=== PATIENT | male | born 1980 | race Two or more races ===

== ENCOUNTER 2023-04-23 19:22 | Inpatient (IN) | payer MEDICAID, OTHER ==
[~2023-04-23] VITALS: Ht 180.3 cm; Wt 92.2 kg
[2023-04-23 20:01] LABS: Basophils # (auto) 0.1 10 ^3/uL (0-0.2); Basophils % (auto) 0.6 % (0.0-2.0); Eosinophils # (auto) 0.1 10 ^3/uL (0-0.8); Eosinophils % (auto) 0.4 % (0.0-7.0); Hematocrit 50.1 % (41.0-53.0); Lymphocytes % (auto) 10.4 % (10.0-50.0); Mean Corpuscular Hemoglobin 29.2 pg (28.0-32.0); Mean Corpuscular Hgb Conc. 33.9 g/dL (32.0-36.0); Mean Corpuscular Volume 86.2 fL (80.0-100.0); Monocytes # (auto) 1.5 10 ^3/uL (0-1.3); Monocytes % (auto) 7.5 % (0.0-12.0); Neutrophils % (auto) 81.1 % (37.0-80.0); Nucleated Red Blood Cells % 0.1 %; Red Blood Cells 5.81 10^6/uL (4.5-5.90); Red Cell Distribution Width 13.1 % (11.8-14.3); White Blood Cell 19.7 10^3/uL (4.4-10.8)
[2023-04-23] MEDS ORDERED: SODIUM CHLORIDE 0.9% 1,000 ML IV ONE ×2 (20:15→21:15)
[2023-04-23] MEDS ORDERED: ONDANSETRON HCL 4 MG/2 ML VIAL IV ONE (20:15)
[2023-04-23 20:27] LABS: Alanine Aminotransferase 181 U/L (7-40); Albumin 4.1 g/dL (3.2-4.8); Alkaline Phosphatase 125 U/L (46-116); Anion Gap 10 (5-15); Aspartate Aminotransferase 81 U/L (13-40); BUN/Creatinine Ratio 11.6 (10.0-20.0); Blood Urea Nitrogen 16 mg/dL (9-23); Calcium 8.6 mg/dL (8.7-10.4); Carbon Dioxide 25 mmol/L (20-30); Chloride 97 mmol/L (98-107); Glucose 121 mg/dL (74-106); Lipase 29 U/L (12-53); Potassium 3.9 mmol/L (3.5-5.1); Sodium 132 mmol/L (136-145)
[2023-04-23 20:28] LABS: Bilirubin, Total 1.8 mg/dL (0.2-1.0); Total Protein 7.5 g/dL (5.7-8.2)
[2023-04-23] MEDS ORDERED: PIPERACILLIN-TAZOB 3.375GM 100 ML IV ONE (21:15)
[2023-04-23 22:23] LABS: Urine Bacteria NONE SEEN /hpf (None Seen); Urine Blood Negative /uL (Negative); Urine Clarity Clear (Clear); Urine Color Yellow (Yellow); Urine Mucus FEW (None Seen); Urine Protein, UAD 1+ (Negative); Urine Specific Gravity 1.021 (1.001-1.035); Urine WBC 5 /hpf (0 - 3); Urine pH 5.5 (5.0-8.0)
[2023-04-23 22:38] LABS: Amphetamine Screen, Urine Neg (NEGATIVE)
[2023-04-23 22:39] LABS: Barbiturate Scree,Urine Neg (NEGATIVE); Benzodiazephine Screen, Urine Neg (NEGATIVE); Cannabinoid Screen, Urine Pos (NEGATIVE); Cocaine Screen, Urine Neg (NEGATIVE); Opiate Scree,Urine Neg (NEGATIVE); Phencyclidine Screen, Urine Neg (NEGATIVE)
[2023-04-23] MEDS ORDERED: VANCOMYCIN PER PHARMACY 0 MG IV SCH (23:15)
[2023-04-23] MEDS ORDERED: ACETAMINOPHEN 325 MG TAB PO PRN (23:15)
[2023-04-23] MEDS ORDERED: MAALOX PLUS or MAALOX 30 ML PO PRN (23:15)
[2023-04-23] MEDS ORDERED: TEMAZEPAM 15 MG CAP PO PRN (23:15)
[2023-04-23] MEDS ORDERED: DOCUSATE SOD 100 MG CAP PO PRN (23:15)
[2023-04-23] MEDS ORDERED: LORazepam 0.5 MG TAB PO PRN (23:15)
[2023-04-23 23:43] VITALS: BP 125/64; PULSE 93; RESP 18; TEMP 99.5; O2SAT 94
[2023-04-23] MEDS ORDERED: VANCOMYCIN 1GM/200ML 200 ML IV ONE (23:45)
[2023-04-24] VITALS (7 sets, daily range): PULSE 71–83; RESP 12–22; O2SAT 93–95
[2023-04-24] MEDS: SODIUM CHLORIDE 0.9% 1,000 ML IV SCH ×2 (01:43→15:55)
[2023-04-24 06:10] LABS: Basophils # (auto) 0.1 10 ^3/uL (0-0.2); Basophils % (auto) 0.6 % (0.0-2.0); Eosinophils # (auto) 0 10 ^3/uL (0-0.8); Hematocrit 43.9 % (41.0-53.0); Hemoglobin 14.7 g/dL (13.5-17.5); Lymphocytes # (auto) 1.5 10 ^3/uL (0.4-5.4); Lymphocytes % (auto) 9.8 % (10.0-50.0); Mean Corpuscular Hgb Conc. 33.5 g/dL (32.0-36.0); Mean Corpuscular Volume 86.5 fL (80.0-100.0); Monocytes # (auto) 0.8 10 ^3/uL (0-1.3); Monocytes % (auto) 5.6 % (0.0-12.0); Neutrophils # (auto) 12.5 10 ^3/uL (1.6-8.6); Red Blood Cells 5.08 10^6/uL (4.5-5.90); Red Cell Distribution Width 13.4 % (11.8-14.3); White Blood Cell 14.9 10^3/uL (4.4-10.8)
[2023-04-24 06:27] LABS: Calcium 7.6 mg/dL (8.7-10.4); Chloride 103 mmol/L (98-107); Potassium 3.3 mmol/L (3.5-5.1); Sodium 134 mmol/L (136-145)
[2023-04-24 06:28] LABS: Anion Gap 7 (5-15); Carbon Dioxide 24 mmol/L (20-30)
[2023-04-24 06:33] LABS: Glucose 107 mg/dL (74-106)
[2023-04-24 06:34] LABS: BUN/Creatinine Ratio 18.8 (10.0-20.0); Blood Urea Nitrogen 16 mg/dL (9-23)
[2023-04-24] MEDS: PIPERACILLIN-TAZOB 3.375GM 100 ML IV SCH ×3 (06:38→22:00)
[2023-04-24] MEDS: ONDANSETRON HCL 4 MG/2 ML VIAL IV PRN ×3 (08:33→19:51)
[2023-04-24] MEDS: MORPHINE SULFATE INJ 2 MG/ml SYRG IV PRN ×3 (08:34→19:52)
[2023-04-24 09:02] LABS: COVID19 ANTIGEN SOFIA FIA NEGATIVE (NEGATIVE)
[2023-04-24] MEDS: predniSONE 20 MG TAB PO SCH (11:00)
[2023-04-24] MEDS: VANCOMYCIN 1GM/200ML 200 ML IV SCH (14:26)
[2023-04-25] VITALS (9 sets, daily range): BP systolic 102; BP diastolic 69; PULSE 71–82; RESP 14–18; TEMP 98.2; O2SAT 93–99
[2023-04-25] MEDS: VANCOMYCIN 1GM/200ML 200 ML IV SCH ×3 (02:47→22:00)
[2023-04-25] MEDS: MORPHINE SULFATE INJ 2 MG/ml SYRG IV PRN ×2 (02:53→14:31)
[2023-04-25] MEDS: ONDANSETRON HCL 4 MG/2 ML VIAL IV PRN ×2 (02:53→14:31)
[2023-04-25] MEDS: PIPERACILLIN-TAZOB 3.375GM 100 ML IV SCH ×3 (06:32→22:00)
[2023-04-25 07:13] LABS: Potassium 3.8 mmol/L (3.5-5.1)
[2023-04-25 07:14] LABS: Calcium 8.4 mg/dL (8.7-10.4)
[2023-04-25 07:19] LABS: BUN/Creatinine Ratio 20.3 (10.0-20.0)
[2023-04-25 07:21] LABS: Albumin 3.5 g/dL (3.2-4.8); Phosphorus 2.7 mg/dL (2.4-5.1)
[2023-04-25] MEDS: ALBUTEROL SULF 2.5 MG/0.5ML(0.5%) NEB SOLN NEB PRN ×2 (07:58→19:44)
[2023-04-25] MEDS: SODIUM CHLORIDE 0.9% 1,000 ML IV SCH (09:48)
[2023-04-25] MEDS: predniSONE 20 MG TAB PO SCH (14:30)
[2023-04-25] MEDS: HYDROcodone-ACET 5/325MG TAB PO PRN (20:32)
[2023-04-26] VITALS (12 sets, daily range): BP systolic 113–135; BP diastolic 73–86; PULSE 60–82; RESP 12–18; TEMP 97.3–98.6; O2SAT 93–98
[2023-04-26] MEDS: SODIUM CHLORIDE 0.9% 1,000 ML IV SCH ×2 (01:15→18:39)
[2023-04-26] MEDS: VANCOMYCIN 1GM/200ML 200 ML IV SCH (05:58)
[2023-04-26] MEDS: HYDROcodone-ACET 5/325MG TAB PO PRN ×3 (06:09→18:38)
[2023-04-26] MEDS: PIPERACILLIN-TAZOB 3.375GM 100 ML IV SCH (07:00)
[2023-04-26] MEDS: ALBUTEROL SULF 2.5 MG/0.5ML(0.5%) NEB SOLN NEB PRN ×2 (07:03→10:42)
[2023-04-26] MEDS: predniSONE 20 MG TAB PO SCH (09:27)
[2023-04-26 12:13] LABS: Eosinophils # (auto) 0 10 ^3/uL (0-0.8); Hematocrit 43.6 % (41.0-53.0); Hemoglobin 14.5 g/dL (13.5-17.5); Mean Corpuscular Hemoglobin 28.9 pg (28.0-32.0); Mean Corpuscular Hgb Conc. 33.2 g/dL (32.0-36.0); Mean Corpuscular Volume 87.1 fL (80.0-100.0); Monocytes # (auto) 0.8 10 ^3/uL (0-1.3)
[2023-04-26 12:15] LABS: Basophils # (auto) 0 10 ^3/uL (0-0.2); Basophils % (auto) 0.3 % (0.0-2.0); Eosinophils % (auto) 0.1 % (0.0-7.0); Lymphocytes # (auto) 1.8 10 ^3/uL (0.4-5.4); Lymphocytes % (auto) 12.1 % (10.0-50.0); Monocytes % (auto) 5.6 % (0.0-12.0); Neutrophils # (auto) 11.9 10 ^3/uL (1.6-8.6); Neutrophils % (auto) 81.9 % (37.0-80.0); Red Blood Cells 5.01 10^6/uL (4.5-5.90); White Blood Cell 14.6 10^3/uL (4.4-10.8)
[2023-04-26 13:04] LABS: Anion Gap 7 (5-15); Carbon Dioxide 24 mmol/L (20-30); Chloride 106 mmol/L (98-107); Potassium 3.7 mmol/L (3.5-5.1); Sodium 137 mmol/L (136-145)
[2023-04-26 13:05] LABS: Calcium 8.6 mg/dL (8.5-10.1)
[2023-04-26 13:10] LABS: Blood Urea Nitrogen 13 mg/dL (9-23); Glucose 116 mg/dL (74-106)
[2023-04-26] MEDS ORDERED: levoFLOXacin 750MG 150 ML IV SCH (20:00)
[2023-04-26] MEDS ORDERED: levoFLOXacin 500MG 100 ML IV SCH (20:00)
[2023-04-27] VITALS (9 sets, daily range): BP systolic 122–139; BP diastolic 81–90; PULSE 58–86; RESP 18–20; TEMP 97.5–98.5; O2SAT 93–97
[2023-04-27] MEDS: HYDROcodone-ACET 5/325MG TAB PO PRN ×2 (04:38→16:40)
[2023-04-27 06:28] LABS: Hemoglobin 15.2 g/dL (13.5-17.5)
[2023-04-27 06:30] LABS: Mean Corpuscular Hemoglobin 29.6 pg (28.0-32.0); Mean Corpuscular Hgb Conc. 33.8 g/dL (32.0-36.0); Mean Corpuscular Volume 87.6 fL (80.0-100.0); Red Blood Cells 5.13 10^6/uL (4.5-5.90); Red Cell Distribution Width 13.7 % (11.8-14.3); White Blood Cell 16.3 10^3/uL (4.4-10.8)
[2023-04-27 06:48] LABS: Alanine Aminotransferase 401 U/L (7-40); Albumin 3.5 g/dL (3.2-4.8); Alkaline Phosphatase 137 U/L (46-116); Anion Gap 10 (5-15); Aspartate Aminotransferase 154 U/L (13-40); Calcium 8.4 mg/dL (8.7-10.4); Carbon Dioxide 21 mmol/L (20-30); Chloride 105 mmol/L (98-107); Glucose 83 mg/dL (74-106); Potassium 4.1 mmol/L (3.5-5.1); Sodium 136 mmol/L (136-145)
[2023-04-27 06:50] LABS: Magnesium 2.2 mg/dL (1.6-2.6)
[2023-04-27 06:51] LABS: Bilirubin, Total 0.9 mg/dL (0.2-1.0); Total Protein 6.4 g/dL (5.7-8.2)
[2023-04-27 06:52] LABS: BUN/Creatinine Ratio 20.3 (10.0-20.0); Blood Urea Nitrogen 14 mg/dL (9-23)
[2023-04-27 07:26] LABS: Basophils % (manual) 0 (0.0-2.0); Blast Cells 0; Metamyelocytes % 0; Myelocytes % 0; Promyelocytes % 0; Reactive Lymphocytes 0
[2023-04-27 08:40] LABS: Band Neutrophils % (manual) 9; Eosinophils % (manual) 1 (0-7); Lymphocytes % (manual) 15 (10.0-50.0); Monocytes % (manual) 8 (0-12); Platelet Estimate Increased
[2023-04-27] MEDS: predniSONE 20 MG TAB PO SCH (10:00)
[2023-04-27] MEDS: SODIUM CHLORIDE 0.9% 1,000 ML IV SCH (10:10)
[2023-04-27] MEDS ORDERED: AUG875T PO (11:21)
[2023-04-27] MEDS ORDERED: AZIT500T66 PO (11:21)
[2023-05-03 08:50] LABS: Hepatitis B Surface Antigen Negative (Negative)
[2023-05-03 09:12] LABS: Hepatitis A Ab IgM Negative; Hepatitis B Core IgM Negative
[2023-05-03 14:13] LABS: Hepatitis C Antibody Reactive (Negative)
== END 2023-04-27 17:50 | disposition home or self-care (01) | DRG 137 ==
LOC: ER 19:22 → TELE 23:15 → TELE-CENTR 04-25 18:00
PROVIDERS: ADMIT Hospitalist; ATTEND Internal Medicine
DX: J15.69 Pneumonia due to other Gram-negative bacteria (principal); N17.0 Acute kidney failure with tubular necrosis; E87.1 Hypo-osmolality and hyponatremia; E86.0 Dehydration; Z20.822 Contact with and (suspected) exposure to COVID-19; F12.90 Cannabis use, unspecified, uncomplicated; I71.9 Aortic aneurysm of unspecified site, without rupture; R74.01 Elevation of levels of liver transaminase levels; J98.11 Atelectasis; J15.9 Unspecified bacterial pneumonia
CPT/HCPCS: 36415; 71045; 71250; 74176; 76705; 80048; 80053; 80069; 80074; 80202; 80307; 80320; 81001; 83605; 83690; 83735; 85007; 85025; 85027; 87040; 87426; 94640; G0378; J1956; J2405; J2543